=== PATIENT | female | born 1955 | race Caucasian/White ===

== ENCOUNTER 2017-10-27 09:38 | Day surgery (SDC) | payer MEDICAID ==
[2017-10-19 16:11] VITALS: BMI 21.1
[~2017-10-27 09:38] MED LIST: LACTATED RINGERS 1,000 ML IV SCH; LIDOCAINE 1% 20 ML VIAL (10MG/ML) FOR IV START INTRADERMA PRN; MIDAZOLAM 2 MG/2 ML VIAL IV PRN
[2017-10-27 11:11] VITALS: TEMP 97.3
[2017-10-27] MEDS: PHENYLEPHRINE 10% OPHTH DROPS 5 ML BTL OP ONE ×3 (11:13→11:37)
[2017-10-27] MEDS: FLURBIPROFEN 0.03% OPHTH DROPS 2.5 ML BTL OP ONE ×3 (11:16→11:50)
[2017-10-27] MEDS: CYCLOPENTOLATE 1% OPHTH SOLN 2 ML BTL OP ONE ×3 (11:20→11:40)
[2017-10-27] MEDS ORDERED: EPINEPHrine (PF) 0.5 ML in BALANCED SALT IRRIG SOLN COMB2 500 ML IRRIGATION ONE (11:45)
[2017-10-27] MEDS: GENTAMICIN/PREDNISOL AC OPHTH OINT 3.5GM OPHTHALMIC ONE ×2 (11:46→11:51)
[2017-10-27] MEDS ORDERED: PROPOFOL 10 MG/ML 20 ML VIAL IV ONE (11:46)
[2017-10-27] MEDS: TIMOLOL 0.5% OPHTH DROPS 5 ML BTL OP ONE ×2 (11:46→11:51)
[2017-10-27] MEDS: BUPIVACAINE (PF) 0.75% 5 ML, HYALURONIDASE, HUMAN RECOMB 150 UNIT, LIDOCAINE 2% (PF) 10... MISCELLANE ONE ×9 (11:46→11:59)
[2017-10-27] MEDS ORDERED: BALANCED SALT IRRIG SOLN COMB2 15 ML IRRIG.SOLN INTRAOCULA ONE ×2 (11:47→11:51)
[2017-10-27] MEDS ORDERED: TIMOLOL 0.5% OPHTH SOLN (PF) 0.2 ML DROPERETTE LEFT EYE ONE ×2 (11:47→11:51)
--- NOTE | 2017-10-27 12:17 | P.OP ---
Date of Procedure: 10/27/17 Procedure(s) Performed: PREOPERATIVE DIAGNOSIS: Cataract, left eye. POSTOPERATIVE DIAGNOSIS: Cataract, left eye. OPERATION: Phacoemulsification cataract, left eye. DESCRIPTION OF PROCEDURE: The patient was taken to the preoperative holding area. Intravenous Propofol was given so as to bring about adequate sedation. The following mixture was given for local anesthesia: 5 mL of 2% lidocaine, 5 mL of 0.75% Marcaine, and 1 mL of Wydase. Approximately 4 mL was injected in the retrobulbar space of the surgical eye. Additional 1 mL was then directed to the temporal area of the surgical eye. This was performed to allow adequate neurological block of the facial muscles. The patient was revived and then taken into the operative room. The patient was prepped and draped in the usual sterile manner for the operative eye. A lid speculum was put into position. The conjunctiva was resected back from the limbus in the 12 o'clock position. Bleeding was controlled with electrocautery. A #69 blade was then used and a half-thickness scleral incision approximately 1-mm posterior to the limbus was made on bare sclera. This was shelved in the clear cornea using a crescent knife. Next a 15-degree blade was used to make a stab incision at the 3 o' clock position at the corneolimbal interface. Keratome blade was then used and the superior wound was extended into the anterior chamber. Viscoelastic was injected into the anterior chamber and to maintain its form. Next, a cystotome was used and a continuous anterior capsulotomy was made without difficulty. Hydrodissection using a blunt cannula and BSS was performed. Phaco probe was then employed and a groove extending from 12 to 6 o'clock in the lens was created. A Shai wand was used through the stab incision so as to perform a divide and conquer technique. Next an irrigation aspiration probe was utilized and any residual cortex was removed from the eye. Again, viscoelastic was injected into the anterior chamber. An Lazaro posterior chamber lens implant was placed in the cartridge and injected into the anterior chamber without difficulty. The SinVuzeey hook was utilized to spin the lens into position and this was again performed without any difficulty. The irrigation and aspiration probe was again employed and any residual viscoelastic was removed from the eye. Then BSS was injected into the limbal stab incision and the anterior chamber re-inflated. The conjunctiva was reapproximated using electrocautery. One drop of 0.25% Timoptic was placed over the corneal along with TobraDex ophthalmic ointment. Two sterile patches and a Bergeron eye shield were taped into position. The patient was transported to the recovery room in stable condition. Pathology: none sent Condition: stable Disposition: same day
[2017-10-27 12:42] VITALS: BP 136/82; PULSE 50; RESP 18
== END 2017-10-27 12:45 | disposition home or self-care (01) ==
LOC: OR 09:38
PROVIDERS: ATTEND Ophthalmology
DX: H25.13 Age-related nuclear cataract, bilateral (principal)
CPT/HCPCS: 66984; V2632; J3470; J2001; J0171; J2704

== ENCOUNTER 2017-12-29 08:54 | Day surgery (SDC) | payer MEDICAID ==
[~2017-12-29 08:54] MED LIST changes: -LIDOCAINE 1% 20 ML VIAL (10MG/ML) FOR IV START INTRADERMA PRN; -MIDAZOLAM 2 MG/2 ML VIAL IV PRN
[2017-12-29] MEDS: PHENYLEPHRINE 10% OPHTH DROPS 5 ML BTL OP ONE ×3 (10:05→10:25)
[2017-12-29 10:08] VITALS: TEMP 97.6
[2017-12-29] MEDS: CYCLOPENTOLATE 1% OPHTH SOLN 2 ML BTL OP ONE ×3 (10:08→10:30)
[2017-12-29] MEDS ORDERED: LIDOCAINE 1% 20 ML VIAL (10MG/ML) FOR IV START INTRADERMA ONE (10:11)
[2017-12-29] MEDS: FLURBIPROFEN 0.03% OPHTH DROPS 2.5 ML BTL OP ONE ×3 (10:11→10:34)
[2017-12-29] MEDS ORDERED: BALANCED SALT IRRIG SOLN COMB2 15 ML IRRIG.SOLN IRRIGATION ONE (10:43)
[2017-12-29] MEDS ORDERED: HYALURONATE SODIUM INTRAOCULAR 1 EACH SYRINGE (10MG/ML) INTRAOCULA ONE (10:43)
[2017-12-29] MEDS ORDERED: PROPOFOL 10 MG/ML 20 ML VIAL IV ONE (10:47)
--- NOTE | 2017-12-29 11:09 | P.OP ---
Date of Procedure: 12/29/17 Procedure(s) Performed: PREOPERATIVE DIAGNOSIS: Cataract, right eye. POSTOPERATIVE DIAGNOSIS: Cataract, right eye. OPERATION: Phacoemulsification cataract, right eye. DESCRIPTION OF PROCEDURE: The patient was taken to the preoperative holding area. Intravenous Propofol was given so as to bring about adequate sedation. The following mixture was given for local anesthesia: 5 mL of 2% lidocaine, 5 mL of 0.75% Marcaine, and 1 mL of Wydase. Approximately 4 mL was injected in the retrobulbar space of the surgical eye. Additional 1 mL was then directed to the temporal area of the surgical eye. This was performed to allow adequate neurological block of the facial muscles. The patient was revived and then taken into the operative room. The patient was prepped and draped in the usual sterile manner for the operative eye. A lid speculum was put into position. The conjunctiva was resected back from the limbus in the 12 o'clock position. Bleeding was controlled with electrocautery. A #69 blade was then used and a half-thickness scleral incision approximately 1-mm posterior to the limbus was made on bare sclera. This was shelved in the clear cornea using a crescent knife. Next a 15-degree blade was used to make a stab incision at the 3 o' clock position at the corneolimbal interface. Keratome blade was then used and the superior wound was extended into the anterior chamber. Viscoelastic was injected into the anterior chamber and to maintain its form. Next, a cystotome was used and a continuous anterior capsulotomy was made without difficulty. Hydrodissection using a blunt cannula and BSS was performed. Phaco probe was then employed and a groove extending from 12 to 6 o'clock in the lens was created. A Shai wand was used through the stab incision so as to perform a divide and conquer technique. Next an irrigation aspiration probe was utilized and any residual cortex was removed from the eye. Again, viscoelastic was injected into the anterior chamber. An Lazaro posterior chamber lens implant was placed in the cartridge and injected into the anterior chamber without difficulty. The [place] hook was utilized to spin the lens into position and this was again performed without any difficulty. The irrigation and aspiration probe was again employed and any residual viscoelastic was removed from the eye. Then BSS was injected into the limbal stab incision and the anterior chamber re-inflated. The conjunctiva was reapproximated using electrocautery. One drop of 0.25% Timoptic was placed over the corneal along with TobraDex ophthalmic ointment. Two sterile patches and a Bergeron eye shield were taped into position. The patient was transported to the recovery room in stable condition. Pathology: none sent Condition: stable Disposition: same day
[2017-12-29 11:14] VITALS: RESP 16
[2017-12-29 11:27] VITALS: BP 105/71; PULSE 49
[2017-12-29] MEDS ORDERED: BUPIVACAINE (PF) 0.75% 5 ML, HYALURONIDASE, HUMAN RECOMB 150 UNIT, LIDOCAINE 2% (PF) 10... MISCELLANE ONE ×3 (23:00)
[2017-12-29] MEDS ORDERED: GENTAMICIN/PREDNISOL AC OPHTH OINT 3.5GM OPHTHALMIC ONE (23:00)
[2017-12-29] MEDS ORDERED: TIMOLOL 0.5% OPHTH DROPS 5 ML BTL OP ONE (23:00)
== END 2017-12-29 11:44 | disposition home or self-care (01) ==
LOC: OR 08:54
PROVIDERS: ATTEND Ophthalmology
DX: H25.11 Age-related nuclear cataract, right eye (principal)
CPT/HCPCS: 66984; V2632; J3470; J2001; J2704

== ENCOUNTER → 2018-01-06 | Outpatient (CLI) | payer MEDICAID ==
[2018-01-06 11:16] LABS: ALT 67 U/L (9-52); AST 45 U/L (14-36); Albumin 4.7 g/dL (3.5-5.0); Alkaline Phosphatase 91 U/L (38-126); Anion Gap 5 mmol/L; Blood Urea Nitrogen 14 mg/dL (7-17); Calcium 10.7 mg/dL (8.4-10.2); Carbon Dioxide 29 mmol/L (22-30); Chloride 108 mmol/L (98-107); Cholesterol 203 mg/dL (<200); Glucose 85 mg/dL (74-99); HDL Cholesterol 69 mg/dL (40-60); LDL Cholesterol,Calculated 120 mg/dL (0-99); Potassium 4.3 mmol/L (3.5-5.1); Sodium 142 mmol/L (137-145); Total Bilirubin 0.6 mg/dL (0.2-1.3); Total Protein 6.6 g/dL (6.3-8.2); Triglycerides 71 mg/dL (<150)
[2018-01-06 11:29] LABS: T4, Free (Free Thyroxine) 0.86 ng/dL (0.78-2.19)
== END | disposition home or self-care (01) ==
LOC: LABWHC1 09:47
PROVIDERS: ATTEND Obstetrics & Gynecology
DX: Z13.220 Encounter for screening for lipoid disorders (principal); Z13.1 Encounter for screening for diabetes mellitus
CPT/HCPCS: 36415; 80053; 80061; 84439; 84443

== ENCOUNTER → 2018-05-04 | Outpatient (CLI) | payer MEDICAID ==
--- NOTE | 2018-05-05 08:05 | MM ---
Reason for exam: screening (asymptomatic). Last mammogram was performed 8 years and 1 month ago. History: Benign cyst aspiration of the right breast, 2006. Physical Findings: A clinical breast exam by your physician is recommended on an annual basis and results should be correlated with mammographic findings. MG 3D Screening Mammo W/Cad Bilateral CC and MLO view(s) were taken. Prior study comparison: April 17, 2010, bilateral digital screening mammogram. November 26, 2007, bilateral diagnostic digital mammog. The breast tissue is heterogeneously dense. This may lower the sensitivity of mammography. There is chronic nodularity bilaterally. No significant changes when compared with prior studies. ASSESSMENT: Benign, BI-RAD 2 RECOMMENDATION: Routine screening mammogram of both breasts in 1 year.
== END | disposition home or self-care (01) ==
LOC: RADMAMWWP 06:47
PROVIDERS: ATTEND Obstetrics & Gynecology
DX: Z12.31 Encounter for screening mammogram for malignant neoplasm of breast (principal)
CPT/HCPCS: 77063; 77067

== ENCOUNTER → 2020-01-06 | Outpatient (CLI) | payer MEDICAID | END | disposition home or self-care (01) | LOC: LABWHC1 08:28 | PROVIDERS: ATTEND Nurse Practitioner Gerontology | DX: Z11.59 Encounter for screening for other viral diseases (principal) ==

== ENCOUNTER → 2020-06-15 | Outpatient (CLI) | payer MEDICAID ==
[2020-06-15 10:29] LABS: Basophils % (A) 1 %; Eosinophils # (A) 0.1 k/uL (0-0.7); Eosinophils % (A) 3 %; HCT 40.9 % (34.0-46.0); HGB 13.1 gm/dL (11.4-16.0); Lymphocytes % (A) 34 %; MCH 27.8 pg (25.0-35.0); Mean Platelet Volume 6.8; Monocytes # (A) 0.2 k/uL (0-1.0); Monocytes % (A) 7 %; Neutrophils # (A) 1.6 k/uL (1.3-7.7); Neutrophils % (A) 54 %; Platelet Count 168 k/uL (150-450); RDW 13.1 % (11.5-15.5); WBC 2.9 k/uL (3.8-10.6)
[2020-06-15 15:46] LABS: Hepatitis A Antibody IgM Non-Reactive (Non-Reactive); Hepatitis B Core IgM Non-Reactive (Non-Reactive); Hepatitis B Surface Antigen Non-Reactive (Non-Reactive); Hepatitis C IgG Antibody Non-Reactive (Non-Reactive)
[2020-06-15 15:51] LABS: ALT 27 U/L (8-44); AST 23 U/L (13-35); African American GFR (CKD) 112.4 (60.0-200.0); Albumin/Globulin Ratio 3.36 (1.60-3.17); Alkaline Phosphatase 91 U/L (41-126); BUN/Creat Ratio 16.67 Ratio (12.00-20.00); Calcium 10.6 mg/dL (8.7-10.3); Carbon Dioxide 30.5 mmol/L (21.6-31.8); Chloride 109 mmol/L (96-109); Chol/HDL Ratio 2.73; Cholesterol 183 mg/dL (0-200); Globulin 1.4 g/dL (1.6-3.3); Glucose 84 mg/dL (70-110); Potassium 4.6 mmol/L (3.5-5.5); Sodium 145 mmol/L (135-145); Total Bilirubin 0.9 mg/dL (0.2-1.2); Total Protein 6.1 g/dL (6.2-8.2); Triglycerides <50.0 mg/dL (0.0-149.0)
== END | disposition home or self-care (01) ==
LOC: LABWHC1 09:21
PROVIDERS: ATTEND Internal Medicine Geriatric Medicine
DX: E78.2 Mixed hyperlipidemia (principal); E83.52 Hypercalcemia; R94.5 Abnormal results of liver function studies; Z20.822 Contact with and (suspected) exposure to COVID-19
CPT/HCPCS: 36415; 80053; 80061; 80074; 83036; 83970; 84439; 84443; 85025; 86769

== ENCOUNTER → 2021-01-29 | Outpatient (CLI) | payer MEDICAID ==
[2021-01-29 22:46] LABS: African American GFR (CKD) 106.1 (60.0-200.0); Albumin 5.1 g/dL (3.80-4.90); Albumin/Globulin Ratio 3.19 (1.60-3.17); Anion Gap 12.5 mmol/L (4.00-12.00); BUN/Creat Ratio 14.29 Ratio (12.00-20.00); Calcium 11.2 mg/dL (8.7-10.3); Carbon Dioxide 24.5 mmol/L (21.6-31.8); Globulin 1.6 g/dL (1.6-3.3); Non-African American GFR(CKD) 91.6 (60.0-200.0); Phosphorus 3.3 mg/dL (2.4-5.1); Potassium 4.3 mmol/L (3.5-5.5); Total Bilirubin 0.7 mg/dL (0.3-1.2); Total Protein 6.7 g/dL (6.2-8.2)
== END | disposition home or self-care (01) ==
LOC: LABWHC1 09:19
PROVIDERS: ATTEND Internal Medicine
DX: E21.3 Hyperparathyroidism, unspecified (principal); E55.9 Vitamin D deficiency, unspecified
CPT/HCPCS: 36415; 80053; 82306; 83970; 84100

== ENCOUNTER → 2021-03-08 | Outpatient (CLI) | payer MEDICAID ==
--- NOTE | 2021-03-08 14:33 | US ---
EXAMINATION TYPE: US thyroid st tissue head/neck DATE OF EXAM: 03/08/2021 COMPARISON: NM scan today. CLINICAL HISTORY: E21.3 HYPERPARATHYROIDISM. GLAND SIZE: Right Lobe: 4.2x1.3x1.2 cm Overall Parenchyma: homogenous Left Lobe: 3.2x0.9x1.3 cm Overall Parenchyma: homogeneous Isthmus Thickness: 0.2 cm NODULES RIGHT: # of nodules measured on right: 1 1. 0.6 X 0.5 x 0.6 cm, lower lateral, solid or almost completely solid, isoechoic nodule, which is wider than tall, with smooth margins, without echogenic foci. LEFT: # of nodules measured on left: 1 1. 0.6 X 0.5 x 0.7 cm, lower mid, solid or almost completely solid, isoechoic nodule, which is wide r than tall, with smooth margins, without echogenic foci. ISTHMUS: # of nodules measured in the isthmus: 0 Bilateral neck scanned, no evidence of lymphadenopathy. IMPRESSION: Subcentimeter bilateral thyroid nodules. 2017 ACR TI-RADS LEVEL: TR-RADS 3 - Mildly Suspicious: Follow if > 1.5 cm, FNA if > 2.5 cm *Highest TI-RADS level nodule reported
--- NOTE | 2021-03-11 09:06 | NM ---
EXAMINATION TYPE: NM parathyroid w/spect DATE OF EXAM: 03/08/2021 COMPARISON: NONE HISTORY: Hyperparathyroidism TECHNIQUE: Following administration of 25.1 mCi Tc99m Sestamibi. Anterior projection images of the neck and ches t were obtained 10 minutes and 3 hours post injection. SPECT images of the neck and chest were obtai hola and reconstructed in three axes. FINDINGS: Thyroid tracer washout: Delayed images demonstrate near-complete tracer washout from the thyroid. Parathyroid uptake: None. The two-hour delayed images do not demonstrate any focal abnormal persisten t uptake in the region of the parathyroid glands to suggest parathyroid adenoma. Normal uptake: There is physiological tracer uptake in the myocardium, liver, salivary glands, and th yroid gland. IMPRESSION: Normal parathyroid imaging study. No evidence for mediastinal uptake to suggest mediastinal parathyro id adenoma
== END | disposition home or self-care (01) ==
LOC: RADNMMAIN 11:22
PROVIDERS: ATTEND Internal Medicine
DX: E21.3 Hyperparathyroidism, unspecified (principal)
CPT/HCPCS: 76536; 78071; A9500

== ENCOUNTER → 2021-04-03 | Outpatient (CLI) | payer MEDICAID ==
--- NOTE | 2021-04-04 16:16 | BD ---
EXAMINATION TYPE: Axial Bone Density DATE OF EXAM: 04/03/2021 COMPARISON: NONE CLINICAL HISTORY: Postmenopausal screening Height: 63.5 Weight: 130.1 FRAX RISK QUESTIONS: Alcohol (3 or more units per day): no Family History (Parent hip fracture): no Glucocorticoids (More than 3mos): no (Ex: prednisone, prednisolone, methylprednisolone, dexamethasone, and hydrocortisone). History of Fracture in Adulthood: no Secondary Osteoporosis: 1. Type 1 Diabetes: no 2. Hyperthyroidism: no 3. Menopause before 45: no 4. Malnutrition: no 5. Chronic liver disease: no Rheumatoid Arthritis: no Current Tobacco Use: no RISK FACTORS HISTORY OF: Surgery to Spine/Hip(right/left)/Wrist (right/left): no Family History of Osteoporosis: no Active: yes Diet low in dairy products/other sources of calcium: no Postmenopausal woman: yes Take estrogen and/or progesterone medications: yes How lon months Lost more than 2 inches in height since high school: no MEDICATIONS: prempro Additional History: EXAM MEASUREMENTS: Bone mineral densitometry was performed using the [employer] [facility]. Bone mineral density as measured about the Lumbar spine is: ----- L1-L4(G/cm2): 0.729 T Score Values are as follows: ----- L2: -4.4 ----- L3: -3.9 ----- L4: -2.4 ----- L1-L4: -3.8 Bone mineral density : baseline Bone mineral density about the R hip (g/cm2): 0.746 Bone mineral density about the L hip (g/cm2): 0.736 T Score values are as follows: -----R Neck: -2.1 -----L Neck: -2.2 -----R Total: -2.0 -----L Total: -1.7 Bone mineral density : baseline IMPRESSION: Osteoporosis (T Score less than -2.5). There is increased fracture risk and therapy is usually indicated based on age. Re-Screen 1-2 years. NOTE: T-SCORE=SD OF THE YOUNG ADULT MEAN.
== END | disposition home or self-care (01) ==
LOC: RADBDWWP 15:59
PROVIDERS: ATTEND Obstetrics & Gynecology
DX: Z12.31 Encounter for screening mammogram for malignant neoplasm of breast (principal); N95.1 Menopausal and female climacteric states; M81.0 Age-related osteoporosis without current pathological fracture
CPT/HCPCS: 77080

== ENCOUNTER → 2021-06-21 | Outpatient (CLI) | payer MEDICAID | END | disposition home or self-care (01) | LOC: LABWHC1 13:14 | PROVIDERS: ATTEND Otolaryngology | DX: D35.1 Benign neoplasm of parathyroid gland (principal) | CPT/HCPCS: U0003; C9803; U0005 ==

== ENCOUNTER → 2021-07-30 | Outpatient (CLI) | payer MEDICAID ==
[2021-07-30 14:47] LABS: Ionized Calcium 5.4 mg/dL (4.5-5.3)
[2021-07-30 17:43] LABS: Albumin 4.5 g/dL (3.5-5.0); Calcium 9.8 mg/dL (8.4-10.2)
== END | disposition home or self-care (01) ==
LOC: LABWHC1 14:04
PROVIDERS: ATTEND Otolaryngology
DX: E83.52 Hypercalcemia (principal); Z79.899 Other long term (current) drug therapy
CPT/HCPCS: 36415; 82040; 82306; 82310; 82330; 83735; 83970

== ENCOUNTER → 2022-09-15 | Outpatient (CLI) | payer MEDICAID ==
--- NOTE | 2022-09-16 08:18 | MM ---
Reason for Exam: Screening (asymptomatic). Last mammogram was performed 4 year(s) and 4 month(s) ago. Patient History: Menarche at age 14. First Full-Term at age 27. Postmenopausal. Estrogen, starting at age 64 for 1 year. 2006, Benign Cyst Aspiration on the right side. Sister had breast cancer at or over age 50. Risk Values: Leandra 5 year model risk: 3.3%. NCI Lifetime model risk: 12.0%. Prior Study Comparison: 11/26/2007 Bilateral Diagnostic Mammogram, [facility]. 04/17/2010 Bilateral Screening Mammogram, [facility]. 05/04/2018 Bilateral Screening Mammogram, [facility]. Tissue Density: The breast tissue is heterogeneously dense. This may lower the sensitivity of mammography. Findings: Analyzed By CAD. There is no suspicious new group of microcalcifications or new suspicious mass in either breast. Overall Assessment: Negative, BI-RAD 1 Management: Screening Mammogram of both breasts in 1 year. A clinical breast exam by your physician is recommended on an annual basis and results should be correlated with mammographic findings. Electronically signed and approved by: Robert Hall M.D.
== END | disposition home or self-care (01) ==
LOC: RADMAMWWP 13:50
PROVIDERS: ATTEND Obstetrics & Gynecology
DX: Z12.31 Encounter for screening mammogram for malignant neoplasm of breast (principal); Z78.0 Asymptomatic menopausal state; Z80.3 Family history of malignant neoplasm of breast
CPT/HCPCS: 77063; 77067

== ENCOUNTER → 2022-09-22 | Outpatient (CLI) | payer MEDICAID ==
[2022-09-22 18:43] LABS: ALT 27 U/L (8-44); AST 23 U/L (13-35); African American GFR (CKD) 106.9 (60.0-200.0); Albumin 4.6 g/dL (3.8-4.9); Albumin/Globulin Ratio 3.04 (1.60-3.17); Alkaline Phosphatase 83 U/L (41-126); BUN/Creat Ratio 17.44 Ratio (12.00-20.00); Blood Urea Nitrogen 11.7 mg/dL (9.0-27.0); Calcium 9.9 mg/dL (8.7-10.3); Carbon Dioxide 26.1 mmol/L (20.0-27.5); Chloride 108 mmol/L (96-109); Chol/HDL Ratio 3.26 Ratio; Globulin 1.5 g/dL (1.6-3.3); Glucose 78 mg/dL (70-110); LDL Cholesterol,Calculated 144.9 mg/dL (0.0-131.0); Non-African American GFR(CKD) 92.2 (60.0-200.0); Potassium 4.5 mmol/L (3.5-5.5); Sodium 146 mmol/L (135-145); Total Protein 6.1 g/dL (6.2-8.2); VLDL Calculation 11.72 mg/dL (5.00-40.00)
== END | disposition home or self-care (01) ==
LOC: LABWHC1 07:25
PROVIDERS: ATTEND Obstetrics & Gynecology
DX: Z13.228 Encounter for screening for other metabolic disorders (principal); Z13.220 Encounter for screening for lipoid disorders; Z13.29 Encounter for screening for other suspected endocrine disorder; M81.0 Age-related osteoporosis without current pathological fracture
CPT/HCPCS: 36415; 80053; 80061; 82306; 84439; 84443

== ENCOUNTER → 2023-09-07 | Outpatient (CLI) | payer MEDICAID ==
[2023-09-07 16:42] LABS: ALT 23 U/L (8-49); AST 27 U/L (13-35); Albumin 4.7 g/dL (3.8-4.9); Albumin/Globulin Ratio 2.94 Ratio (1.60-3.17); Alkaline Phosphatase 83 U/L (41-126); Blood Urea Nitrogen 13.5 mg/dL (9.0-27.0); Calcium 9.8 mg/dL (8.7-10.3); Carbon Dioxide 23.4 mmol/L (21.6-31.8); Chloride 108 mmol/L (96-109); Chol/HDL Ratio 2.48 Ratio; Globulin 1.6 g/dL (1.6-3.3); Glucose 96 mg/dL (70-110); LDL Cholesterol,Calculated 121.2 mg/dL (0.0-131.0); Potassium 4.1 mmol/L (3.5-5.5); Sodium 142 mmol/L (135-145); T4, Free (Free Thyroxine) 0.98 ng/dL (0.80-1.80); Total Bilirubin 0.5 mg/dL (0.3-1.2); Total Protein 6.3 g/dL (6.2-8.2)
[2023-09-07 17:02] LABS: Basophils # (A) 0.04 X 10*3/uL (0.00-0.10); Eosinophils # (A) 0.09 X 10*3/uL (0.04-0.35); Eosinophils % (A) 2.2 %; HCT 39.4 % (37.2-50.0); HGB 12.9 g/dL (12.0-17.0); Lymphocytes # (A) 1.57 X 10*3/uL (0.90-5.00); Lymphocytes % (A) 38.5 %; MCH 28.7 pg (27.0-32.0); MCHC 32.7 g/dL (32.0-37.0); MCV 87.8 FL (80.0-97.0); Mean Platelet Volume 9.8 FL (9.5-12.2); Monocytes # (A) 0.27 X 10*3/uL (0.20-1.00); Monocytes % (A) 6.6 %; NRBC Per 100 WBC 0 X 10*3/uL (0.00-0.01); Neutrophils % (A) 51.5 %; Platelet Count 192 X 10*3/uL (140-440); RBC 4.49 X 10*6/uL (4.10-5.60); RDW 13.4 % (11.5-14.5); WBC 4.08 X 10*3/uL (4.50-10.00)
== END | disposition home or self-care (01) ==
LOC: LABWHC1 08:22
PROVIDERS: ATTEND Nurse Practitioner Family
DX: E03.9 Hypothyroidism, unspecified (principal); E78.2 Mixed hyperlipidemia; E55.9 Vitamin D deficiency, unspecified
CPT/HCPCS: 36415; 80053; 80061; 82306; 84439; 84443; 85025

== ENCOUNTER → 2023-09-28 | Outpatient (CLI) | payer MEDICAID ==
--- NOTE | 2023-09-30 13:44 | MM ---
Reason for Exam: Screening (asymptomatic). Last screening mammogram was performed 12 month(s) ago. Patient History: Menarche at age 14. First Full-Term at age 27. Postmenopausal. Estrogen, starting at age 64 for 1 year. 2006, Benign Cyst Aspiration on the right side. Sister had breast cancer, age 58. Risk Values: Leandra 5 year model risk: 3.3%. NCI Lifetime model risk: 11.5%. Prior Study Comparison: 04/17/2010 Bilateral Screening Mammogram, [facility]. 05/04/2018 Bilateral Screening Mammogram, [facility]. 09/15/2022 Bilateral MG 3D screening mammo w/cad, [facility]. Tissue Density: The breasts are heterogeneously dense, which may obscure small masses. Findings: Analyzed By CAD. Right breast: There is no suspicious group of microcalcifications or new suspicious mass. Left breast: There is no suspicious group of microcalcifications or new suspicious mass. Overall Assessment: Negative, BI-RAD 1 Management: Screening Mammogram of both breasts in [address] [facility] will attempt to contact patient to return for supplemental views and ultrasound if indicated. Patient should continue monthly self-breast exams. A clinical breast exam by your physician is recommended on an annual basis. This exam should not preclude additional follow-up of suspicious palpable abnormalities. Note on Leandra scores and lifetime risk: 1. A Leandra score greater than 3% is considered moderate risk. If this is the case, consider specialist referral to assess eligibility for a risk reducing agent. 2. If overall lifetime risk for the development of breast cancer is 20% or higher, the patient may qualify for future screening with alternating mammogram and breast MRI. Electronically signed and approved by: Bhupendra Avelar DO
== END | disposition home or self-care (01) ==
LOC: RADMAMWWP 11:25
PROVIDERS: ATTEND Internal Medicine Geriatric Medicine
DX: Z12.31 Encounter for screening mammogram for malignant neoplasm of breast (principal); Z78.0 Asymptomatic menopausal state; Z80.3 Family history of malignant neoplasm of breast
CPT/HCPCS: 77063; 77067

== ENCOUNTER → 2024-10-12 | Outpatient (CLI) | payer MEDICARE ==
--- NOTE | 2024-10-13 08:10 | CA ---
Transthoracic Echo Report Name: Wendie Lux Age: 68 Gender: F : 1955 Exam Date: 10/12/2024 13:58 Exam Location: [facility] Ht (in): 65 Wt (lb): 125 Ordering Physician: Shiva Jean-Baptiste MD Attending/Referring Phys: Cate Bray [facility] [employer] Strategist Shamika Gaitan RDCS Procedure CPT: Indications: I34.0 NONRHEUMATIC MITRAL (VALVE) INSUFFICIENCY Cardiac Hx: Technical Quality: Good Contrast 1: Total Dose (mL): Contrast 2: Total Dose (mL): MEASUREMENTS (Male / Female) Normal Values 2D ECHO LV Diastolic Diameter PLAX 4.1 cm 4.2 - 5.9 / 3.9 - 5.3 cm LV Systolic Diameter PLAX 3.2 cm IVS Diastolic Thickness 0.9 cm 0.6 - 1.0 / 0.6 - 0.9 cm LVPW Diastolic Thickness 0.9 cm 0.6 - 1.0 / 0.6 - 0.9 cm LV Relative Wall Thickness 0.4 RV Internal Dim ED PLAX 3.4 cm LA Systolic Diameter LX 3.2 cm 3.0 - 4.0 / 2.7 - 3.8 cm LV Diastolic Volume MOD 4C 67.2 cm??? LV Systolic Volume MOD 4C 17.3 cm??? LV Ejection Fraction MOD 4C 74.3 % LV Cardiac Index MOD 4C 2229.4 cm???/min???m??? LV Diastolic Length 4C 7.4 cm LV Systolic Length 4C 5.8 cm LV Diastolic Volume MOD 2C 94.8 cm??? LV Systolic Volume MOD 2C 29.8 cm??? LV Ejection Fraction MOD 2C 68.6 % LV Cardiac Index MOD 2C 2904.3 cm???/min???m??? LV Diastolic Length 2C 6.8 cm LV Systolic Length 2C 4.9 cm LA Volume 45.9 cm??? 18 - 58 / 22 - 52 cm??? LA Volume Index 28.5 cm???/m??? 16 - 28 cm???/m??? M-MODE Aortic Root Diameter MM 3.5 cm AV Cusp Separation MM 2.4 cm DOPPLER AV Peak Velocity 139.6 cm/s AV Peak Gradient 7.8 mmHg MV Area PHT 4.4 cm??? Mitral E Point Velocity 92.3 cm/s Mitral A Point Velocity 78.8 cm/s Mitral E to A Ratio 1.2 MV Deceleration Time 170.9 ms TR Peak Velocity 212.4 cm/s TR Peak Gradient 18.0 mmHg Right Ventricular Systolic Press 22.8 mmHg FINDINGS Left Ventricle Left ventricular ejection fraction is estimated at 55-60 %. Left ventricular cavity size normal. Normal left ventricular wall motion. Right Ventricle Mild right ventricular dilatation. Right ventricular systolic pressure within normal limits. Right Atrium Normal right atrial size. No right atrial thrombus or mass seen. Left Atrium Normal left atrial size. No left atrial thrombus or mass present. Mitral Valve Structurally normal mitral valve. No evidence for mitral valve prolapse. No mitral stenosis. Mild mitral regurgitation. Aortic Valve Trileaflet aortic valve. No aortic valve stenosis or regurgitation. Tricuspid Valve Structurally normal tricuspid valve. Mild tricuspid regurgitation. Pulmonic Valve Structurally normal pulmonic valve. Trace to mild pulmonic regurgitation. Pericardium No pericardial effusion. Aorta Normal size aortic root and proximal ascending aorta. CONCLUSIONS Normal LV size and systolic function. No significant abnormality on the Doppler exam. No pulmonary hypertension. No pericardial effusion Previewed by: Dr. Trudi Martins MD (Electronically Signed) Final Date: 13 Oct 2024 08:09
== END | disposition home or self-care (01) ==
LOC: RADECHMAIN 13:53
PROVIDERS: ATTEND Internal Medicine Geriatric Medicine
DX: I34.0 Nonrheumatic mitral (valve) insufficiency (principal); I37.1 Nonrheumatic pulmonary valve insufficiency; I07.1 Rheumatic tricuspid insufficiency
CPT/HCPCS: 93306